=== PATIENT | male | born 1960 | race Caucasian/White ===

== ENCOUNTER 2016-11-19 11:45 | Emergency (ER) | payer BC ==
[2016-11-19] MEDS ORDERED: NITROGLYCERIN 0.4 MG TAB SL PRN (11:58)
[2016-11-19] MEDS ORDERED: SODIUM CHLORIDE 0.9% FLUSH 10 ML SOL IV PRN (11:58)
[2016-11-19] MEDS ORDERED: NITROGLYCERIN 0.4 MG TAB SL ONE (12:03)
[2016-11-19 12:04] LABS: BASOPHILS % (AUTO) 1 % (0-3); EOSINOPHILS % (AUTO) 3 % (0-9); HEMATOCRIT 49 % (39-53); MEAN CORPUSCULAR HGB CONC 34.9 gm/dl (32.0-36.0); MEAN CORPUSCULAR VOLUME 92 fL (80-100); MONOCYTES % (AUTO) 10.3 % (0-12); NEUTROPHILS % (AUTO) 47.8 % (37-80)
[2016-11-19 12:27] LABS: CALCIUM 9.4 mg/dl (8.5-10.1); GLOM FILT RATE 64 mL/min (>60); POTASSIUM 4.1 mMol/L (3.5-5.1); SODIUM 140 mMol/L (136-145)
[2016-11-19 14:42] VITALS: RESP 18
[2016-11-19 14:43] VITALS: BP 113/79; PULSE 67; TEMP 97.8; O2SAT 97
== END 2016-11-19 14:35 | disposition home or self-care (01) ==
LOC: ED 11:45
DX: S29.012A Strain of muscle and tendon of back wall of thorax, initial encounter (principal); Y93.E1 Activity, personal bathing and showering; Z82.49 Family history of ischemic heart disease and other diseases of the circulatory system
CPT/HCPCS: 71010; 80048; 82550; 84484; 85025; 93005; 99285